=== PATIENT | female | born 1970 | race Caucasian/White ===

== ENCOUNTER 2022-03-30 07:50 | Day surgery (SDC) | payer MEDICAID ==
[2022-03-29 10:56] LABS: BASOPHILS % (AUTO) 0.7 % (0.0-2.0); EOSINOPHILS # (AUTO) 0.1 K/uL (0-0.4); EOSINOPHILS % (AUTO) 1.9 % (0.0-4.0); HEMATOCRIT 39.5 % (36-48); HEMOGLOBIN 13.4 g/dL (12.0-16.0); LYMPHOCYTES # (AUTO) 1.7 K/uL (2.5-16.5); LYMPHOCYTES % (AUTO) 31.3 % (20.5-51.1); MEAN CORPUSCULAR HEMOGLOBIN 31 pg (27-31); MEAN CORPUSCULAR HGB CONC 34 g/dL (33-37); MEAN CORPUSCULAR VOLUME 91.5 fL (80-94); MONOCYTES # (AUTO) 0.4 K/uL (0.8-1.0); MONOCYTES % (AUTO) 7.1 % (1.7-9.3); NEUTROPHILS # (AUTO) 3.2 K/uL (1.8-7.7); PLATELET COUNT (AUTO) 380 K/uL (140-450); RED BLOOD CELL COUNT(AUTO) 4.32 MIL/uL (4.20-5.40); RED CELL DISTRIBUTION WIDTH 13.6 % (11.6-13.7); WHITE BLOOD COUNT (AUTO) 5.5 K/uL (4.8-10.8)
[2022-03-29 11:09] LABS: ALBUMIN 3.6 g/dL (3.4-5.0); CARBON DIOXIDE 28.4 mmol/L (21-32); CREATININE 0.5 mg/dL (0.6-1.3); TOTAL BILIRUBIN 0.4 mg/dL (0.0-1.0)
[2022-03-29 11:20] LABS: ANION GAP 8.3 (8-16); POTASSIUM 3.7 mmol/L (3.5-5.1)
[~2022-03-30] VITALS: Ht 147.3 cm; Wt 54.4 kg
[2022-03-30] MEDS ORDERED: SEVOFLURANE 250 ML BTL INH ONE (11:17)
[2022-03-30] MEDS ORDERED: LIDOCAINE/EPI MPF 1%1:200000 30 ML VIAL INJ ONE (11:19)
[2022-03-30] MEDS ORDERED: BUPIVACAINE-MPF 0.25% 30 ML VIAL INJ ONE (11:20)
[2022-03-30] MEDS ORDERED: fentaNYL citrate 0.05 MG/ML VIAL ONE (11:21)
[2022-03-30] MEDS ORDERED: PROPOFOL 200 MG/20 ML VIAL IV ONE (12:43)
[2022-03-30] MEDS ORDERED: ONDANSETRON 4 MG/2 ML VIAL ONE (12:44)
[2022-03-30] MEDS ORDERED: KETOROLAC 30 MG/ML VIAL ONE (12:44)
[2022-03-30] MEDS ORDERED: ROCURONIUM 50 MG/5 ML VIAL IV ONE ×2 (12:44)
[2022-03-30] MEDS ORDERED: ONDANSETRON 4 MG/2 ML VIAL IV PRN (12:45)
[2022-03-30] MEDS ORDERED: HYDROcodone/APAP 5/325 MG 1 TAB TAB PO PRN (12:45)
[2022-03-30] MEDS ORDERED: HYDROmorphone 1 MG/ML AMP IVP PRN (12:45)
[2022-03-30] MEDS ORDERED: MORPHINE SULFATE 4 MG/ML SYR IV PRN (12:45)
[2022-03-30] MEDS ORDERED: MORPHINE SULFATE 2 MG/ML SYR IVP PRN (12:45)
[2022-03-30] MEDS ORDERED: GLYCOPYRROLATE 0.2 MG/ML VIAL ONE ×3 (12:48)
[2022-03-30] MEDS ORDERED: NEOSTIGMINE 1:1000 10 MG/10 ML VIAL ONE (12:48)
[2022-03-30] MEDS ORDERED: hydrALAZINE 20 MG/ML VIAL IVP PRN (13:02)
[2022-03-30] MEDS ORDERED: LABETALOL 20 MG/4 ML VIAL IVP PRN (13:02)
[2022-03-30] MEDS ORDERED: LACTATED RINGERS 1,000 ML IV SCH (13:05)
[2022-03-30] MEDS: HYDROmorphone 1 MG/ML AMP IVP PRN ×4 (13:05→13:35)
[2022-03-30] MEDS ORDERED: METOCLOPRAMIDE 10 MG/2 ML INJ VIAL IVP PRN (13:06)
[2022-03-30] MEDS ORDERED: HYDROmorphone PFS 2 MG/ML SYR ONE (13:12)
== END 2022-03-30 14:42 | disposition home or self-care (01) ==
LOC: MOR 07:50 → MMU 07:51 → MOR 14:42
PROVIDERS: ATTEND Surgery
DX: K80.10 Calculus of gallbladder with chronic cholecystitis without obstruction (principal); Z79.899 Other long term (current) drug therapy; Z20.822 Contact with and (suspected) exposure to COVID-19
CPT/HCPCS: 36415; 47562; 71045; 80053; 81025; 82374; 85025; 86886; 86900; 86901; 87426; 88304; 93005; J0690; J1170; J1885; J2001; J2405; J2704; J2710; J3010; J3490; J7030; J7060